=== PATIENT | female | born 1975 | race Caucasian/White ===

== ENCOUNTER 2018-05-24 10:28 | Emergency (ER) | payer MEDICAID ==
[~2018-05-24] VITALS: Ht 152.4 cm; Wt 64.0 kg
[2018-05-24 10:31] VITALS: BP 156/81; PULSE 72; RESP 16; Ht 152.4 cm; Wt 64.0 kg
[2018-05-24] MEDS ORDERED: IBUP-1542 PO (12:19)
--- NOTE | 2018-05-24 12:28 | ERD ---
ER Documentation Chief Complaint Chief Complaint pt is bib self with c/o right foot pain s/p falling on last Sunday HPI This 42-year-old female presents with right foot pain after tripping and falling approximately 10 days ago. She has some bruising around her foot. She has pain mostly in her right fifth toe. She has no bleeding, redness, fever discharge. She is concerned she is she has diabetes. She has not been seen for this prior. ROS All systems reviewed and are negative except as per history of present illness. Medications Home Meds Active Scripts Ibuprofen* (Motrin*) 600 Mg Tab, 600 MG PO Q6, #15 TAB Prov:ADRIANA WILLS MD 05/24/18 Allergies Allergies: Coded Allergies: No Known Allergy (Unverified , 05/24/18) PMhx/Soc Medical and Surgical Hx: pt denies Medical Hx, pt denies Surgical Hx Hx Alcohol Use: No Hx Substance Use: No Hx Tobacco Use: No Smoking Status: Never smoker FmHx Family History: No diabetes, No coronary disease, No other Physical Exam Vitals Vital Signs Date Temp Pulse Resp B/P (MAP) Pulse Ox O2 O2 Flow FiO2 Time Delivery Rate 05/24/18 97.0 72 16 156/81 98 10:31 (106) Physical Exam Const: No acute distress Head: Atraumatic Eyes: Normal Conjunctiva ENT: Normal External Ears, Nose and Mouth. Neck: Full range of motion. No meningismus. Resp: Clear to auscultation bilaterally Cardio: Regular rate and rhythm, no murmurs Abd: Soft, non tender, non distended. Normal bowel sounds Skin: No petechiae or rashes Back: No midline or flank tenderness Ext: No cyanosis, or edema. Bruising and tenderness primarily in the right fourth and fifth metatarsal phalangeal joint area. No restricted range of motion, weakness, redness, erythema, bleeding or discharge. Neur: Awake and alert Psych: Normal Mood and Affect Procedures/MDM X-ray Foot 3V Interpreted by me: Bones: Acute fracture of the base of the right fifth digit. Joints: No dislocation Foreign body: None. Impression-comminuted intra-articular fracture of the base right fifth digit. Patient presents with a right fifth digit fracture approximately 10 days old without signs of infection, ischemia, deficits. Patient was placed in a right fifth digit johanna tape and also given a postop shoe. Patient was neurovascular intact after johanna tape and postop shoe. Patient was discharged home with primary care and orthopedic follow-up and return precautions for redness, fevers, new worsening symptoms. The patient was stable with no new complaints during the ER course. Clinically, there is no current evidence to suggest meningitis, sepsis, acute abdomen, pneumonia, stroke, acute coronary syndrome, pulmonary embolism, aortic dissection or any other emergent condition appearing to require further evaluation or hospitalization. Patient counseled regarding my diagnostic impression and care plan. Prior to discharge all questions answered. Pt agrees with treatment plan and understands strict return precautions. Pt is instructed to follow up with primary care provider within 24- 48 hours. Precautionary instructions provided including instructions to return to the ER if not improving or for any worsening or changing symptoms or concerns. Departure Diagnosis: Primary Impression: Fracture of toe Encounter type: initial encounter Toe: unspecified toe Fracture type: closed Fracture alignment: nondisplaced Laterality: right Qualified Codes: S92.911A - Unspecified fracture of right toe(s), initial encounter for closed fracture Additional Impression: Injury of foot Encounter type: initial encounter Laterality: right Qualified Codes: S99.921A - Unspecified injury of right foot, initial encounter Condition: Stable Patient Instructions: Fracture, Toe [Closed] Referrals: MARIKA OLSON MD [facility] () Philip se tafoya hecho un examen mdico de control que le indica que no est en jennifer condicin que requiera tratamiento urgente en el Departamento de Emergencia. Un estudio ms profundo y el tratamiento de cabrera condicin pueden esperar sin ningn riesgo hasta que usted sea atendida/o en el consultorio de cabrera mdico o jennifer clnica. Es responsabilidad suya arreglar jennifer olivia para el seguimiento del yu. MANEJO DE CONDICIONES NO URGENTES EN EL FUTURO 1) Si usted tiene un mdico de atencin primaria: Usted debera llamar a cabrera mdico de atencin primaria antes de venir al departamento de emergencia. Despus de las horas de consultorio, cabrera doctor o cabrera asociado/a est disponible por telfono. El mdico o enfermero de meghann en el servicio telefnico puede asesorarle por dayna medio para atender el problema, o yu contrario se puede programar jennifer olivia. 2) Si usted no tiene un mdico de atencin primaria: Llame al mdico o clnica de referencia que aparece abajo mera las horas de consultorio para hacer jennifer olivia para que le vean. CLINICAS: [facility] [id number] [facility] [phone] [facility] [phone] [address] [facility] [place] [phone] [place] [id number] [phone] [facility] [facility] [phone] [address] Additional Instructions: Va al cabrera doctor/ specialista para mas evaluacon en el proximo semana. posible mente necesita autorizado de cabrera doctor primario para specialista. Regresa para fiebre, o mas o nueva simptomas. ADRIANA WILLS MD May 24, 2018 12:28
== END 2018-05-24 12:43 | disposition home or self-care (01) ==
LOC: FTE 10:28
DX: S92.511A Displaced fracture of proximal phalanx of right lesser toe(s), initial encounter for closed fracture (principal); E11.9 Type 2 diabetes mellitus without complications; W01.0XXA Fall on same level from slipping, tripping and stumbling without subsequent striking against object, initial encounter; Y92.9 Unspecified place or not applicable
CPT/HCPCS: 73630; Z7502